=== PATIENT | female | born 1995 | race Caucasian/White ===

== ENCOUNTER 2016-12-19 12:38 | Emergency (ER) | payer MEDICAID ==
[2016-12-19] MEDS ORDERED: LORazepam 2 MG/ML INJ IVP ONE ×3 (13:16→15:28)
[2016-12-19] MEDS ORDERED: NS 1,000 ML IV ONE ×3 (13:16→15:28)
--- NOTE | 2016-12-19 13:34 | EDPHY ---
H & P Stated Complaint: nausea/vomiting/etoh last night/hypervenitilating - Personal History LMP (Females 10-55): IUD In Place Current Tetanus/Diphtheria Vaccine: Unsure - Medical/Surgical History Hx Asthma: No Hx Chronic Respiratory Disease: No Hx Diabetes: No Hx Cardiac Disease: No Hx Renal Disease: No Hx Cirrhosis: No Hx Alcoholism: No Hx HIV/AIDS: No Hx Splenectomy or Spleen Trauma: No Other PMH: anxiety - Social History Smoking Status: Current every day smoker Time Seen by Provider: 12/19/16 13:08 HPI/ROS: CHIEF COMPLAINT: Dyspnea, hyperventilation HISTORY OF PRESENT ILLNESS: 21-year-old female with history of anxiety, states that she woke this morning complaining of acute anxiety, hyperventilation, dyspnea. Positive alcohol use last evening however not excessive per patient's subjective report. No chest pain. No back pain. No syncope or near syncope. No palpitations. She did not take her Xanax today. PRIMARY CARE PROVIDER: [facility] REVIEW OF SYSTEMS: A ten point review of systems was performed and is negative with the exception of the items mentioned in the HPI PAST MEDICAL & SURGICAL HISTORY: no history of thromboembolic disorder SOCIAL HISTORY:positive cigarette smoker . No cocaine use in the past month. Student. PHYSICAL EXAM (Prior to examination, patient consented to physical exam, hands were washed and my usual and customary physical exam procedures followed) 1) GENERAL: Well-developed, well-nourished, alert and oriented. Appears t anxious, hyperventilating . 2) HEAD: Normocephalic, atraumatic 3) HEENT: Pupils equal, round, reactive to light bilaterally. Sclera anicteric. Nasopharynx, oropharynx, clear, no lesions. Ears bilaterally with normal tympanic membranes. 4) NECK: Full range of motion, no meningeal signs. 5) LUNGS: Clear auscultation bilaterally, no wheezes, no rhonchi, no retractions. No crepitus. Hyperventilating. 6) HEART: Regular rate and rhythm, no murmur, no heave, no gallop. 7) ABDOMEN: No guarding, no rebound, no focal tenderness, negative McBurney's, negative Dent's, negative Rovsing's, negative peritoneal sign, 8) MUSCULOSKELETAL: Moving all extremities, no focal areas of tenderness, no obvious trauma. No peripheral edema or discoloration. 9) BACK: No CVA tenderness, no midline vertebral tenderness, no fluctuance, no step-off, no obvious trauma, no visual or palpable abnormality. 10) SKIN: No rash, no petechiae. 11) Psychiatric: Patient is oriented X 3, there is no agitation. DIFFERENTIAL DIAGNOSIS: in no particular include but limited to pulmonary embolus, acute anxiety, acute alcohol withdrawal (Stan Hickman) Constitutional: Initial Vital Signs Temperature (C) 36.4 C 12/19/16 12:49 Heart Rate 80 12/19/16 12:49 Respiratory Rate 26 H 12/19/16 12:49 Blood Pressure 117/77 12/19/16 12:49 O2 Sat (%) 97 12/19/16 12:49 O2 Delivery Mode Room Air Allergies/Adverse Reactions: No Known Allergies Allergy (Unverified 12/19/16 12:49) Home Medications: Medication Instructions Recorded MIRENA 12/19/16 Xanax 12/19/16 Medical Decision Making - Diagnostics Imaging Results: Imaging Impressions Chest X-Ray 12/19/16 13:16 Impression: Suspect mild airways disease. ED Course/Re-evaluation: 2:56 p.m.: Patient's laboratory studies not resulted yet. Informed by the laboratory at this time that because of a name change incident the patient's laboratory studies have been delayed. 3:29 p.m.: Re-evaluation. He remains tachycardic in the mid 120s at this time after 2 L of fluid and 2 mg of IV Ativan. Specific etiology of this is not completely clear at this time. Will obtain EKG and administer further medication re-evaluated. (Stan Hickman) 3:45 p.m.-this patient was seen and examined by me. Cardiovascular: Regular tachycardia, chest is clear to auscultation. She states that she feels much better after IV Ativan and thinks that this was a panic attack. However she is still tachycardic, so we will continue to observe her and give her further IV fluids. A TSH was ordered. Leukocytosis and low bicarb likely secondary to dehydration to and vomiting. There is no evidence of serious infection at this point. She is feeling much better and would like to go home. Will give her another liter of normal saline and observe. Feels much better, wants to go home. (Ayana Jameson) - Data Points Laboratory Results: Laboratory Results 12/19/16 13:25 12/19/16 13:25 12/19/16 12/19/16 12/19/16 Unknown 13:25 13:25 WBC RBC Hgb Hct MCV MCH MCHC RDW Plt Count MPV Neut % (Auto) Lymph % (Auto) Levy % (Auto) Eos % (Auto) Baso % (Auto) Nucleat RBC Rel Count Absolute Neuts (auto) Absolute Lymphs (auto) Absolute Monos (auto) Absolute Eos (auto) Absolute Basos (auto) Absolute Nucleated RBC Immature Gran % Immature Gran # D-Dimer Sodium 139 mEq/L mEq/L (134-144) Potassium 4.4 mEq/L mEq/L (3.5-5.2) Chloride 106 mEq/L mEq/L (97-110) Carbon Dioxide 18 mEq/l L mEq/l (22-31) Anion Gap 15 mEq/L mEq/L (8-16) BUN 15 mg/dL mg/dL (7-23) Creatinine 0.8 mg/dL mg/dL (0.6-1.0) Estimated GFR > 60 Glucose 87 mg/dL mg/dL (70-100) Calcium 10.5 mg/dL H mg/dL (8.5-10.4) Total Bilirubin 1.0 mg/dL mg/dL (0.1-1.4) Conjugated Bilirubin 0.5 mg/dL mg/dL (0.0-0.5) Unconjugated Bilirubin 0.5 mg/dL mg/dL (0.0-1.1) AST 26 IU/L IU/L (14-46) ALT 33 IU/L IU/L (9-52) Alkaline Phosphatase 82 IU/L IU/L (38-126) Total Protein 8.5 g/dL H g/dL (6.3-8.2) Albumin 5.0 g/dL g/dL (3.5-5.0) Lipase 37.0 IU/L IU/L (23-300) TSH 2.960 uIU/mL uIU/mL (0.465-4.680) Beta HCG, Qual NEGATIVE 12/19/16 12/19/16 13:25 13:25 WBC 21.64 10^3/uL H 10^3/uL (3.80-9.50) RBC 5.04 10^6/uL 10^6/uL (4.18-5.33) Hgb 14.4 g/dL g/dL (12.6-16.3) Hct 43.2 % % (38.0-47.0) MCV 85.7 fL fL (81.5-99.8) MCH 28.6 pg pg (27.9-34.1) MCHC 33.3 g/dL g/dL (32.4-36.7) RDW 13.1 % % (11.5-15.2) Plt Count 240 10^3/uL 10^3/uL (150-400) MPV 11.3 fL fL (8.7-11.7) Neut % (Auto) 91.9 % H % (39.3-74.2) Lymph % (Auto) 5.3 % L % (15.0-45.0) Levy % (Auto) 2.1 % L % (4.5-13.0) Eos % (Auto) 0.0 % L % (0.6-7.6) Baso % (Auto) 0.2 % L % (0.3-1.7) Nucleat RBC Rel Count 0.0 % % (0.0-0.2) Absolute Neuts (auto) 19.90 10^3/uL H 10^3/uL (1.70-6.50) Absolute Lymphs (auto) 1.14 10^3/uL 10^3/uL (1.00-3.00) Absolute Monos (auto) 0.45 10^3/uL 10^3/uL (0.30-0.80) Absolute Eos (auto) 0.00 10^3/uL L 10^3/uL (0.03-0.40) Absolute Basos (auto) 0.04 10^3/uL 10^3/uL (0.02-0.10) Absolute Nucleated RBC 0.00 10^3/uL 10^3/uL (0-0.01) Immature Gran % 0.5 % % (0.0-1.1) Immature Gran # 0.11 10^3/uL H 10^3/uL (0.00-0.10) D-Dimer < 0.27 ug/mLFEU ug/mLFEU (0.00-0.50) Sodium Potassium Chloride Carbon Dioxide Anion Gap BUN Creatinine Estimated GFR Glucose Calcium Total Bilirubin Conjugated Bilirubin Unconjugated Bilirubin AST ALT Alkaline Phosphatase Total Protein Albumin Lipase TSH Beta HCG, Qual Medications Given: Discontinued Medications Sodium Chloride (Ns) 1,000 mls @ 0 mls/hr IV ONCE ONE PRN Reason: Wide Open Stop: 12/19/16 13:17 Last Admin: 12/19/16 13:22 Dose: 1,000 mls Sodium Chloride (Ns) 1,000 mls @ 0 mls/hr IV ONCE ONE PRN Reason: Wide Open Stop: 12/19/16 14:07 Last Admin: 12/19/16 14:13 Dose: 1,000 mls Sodium Chloride (Ns) 1,000 mls @ 0 mls/hr IV ONCE ONE PRN Reason: Wide Open Stop: 12/19/16 15:29 Last Admin: 12/19/16 15:44 Dose: 1,000 mls Lorazepam (Ativan Injection) 1 mg IVP EDNOW ONE Stop: 12/19/16 13:17 Last Admin: 12/19/16 13:31 Dose: 1 mg Lorazepam (Ativan Injection) 1 mg IVP EDNOW ONE Stop: 12/19/16 14:07 Last Admin: 12/19/16 14:13 Dose: 1 mg Lorazepam (Ativan Injection) 1 mg IVP EDNOW ONE Stop: 12/19/16 15:29 Last Admin: 12/19/16 15:43 Dose: 1 mg Departure - Departure Disposition: Home, Routine, Self-Care Clinical Impression: Anxiety Vomiting Qualifiers: Vomiting type: unspecified Vomiting Intractability: non-intractable Nausea presence: with nausea Qualified Code(s): R11.2 - Nausea with vomiting, unspecified Condition: Good Instructions: Anxiety (ED), Acute Nausea and Vomiting (ED) Additional Instructions: Call 911 if you develop chest pain, shortness of breath or any other symptoms that concern you. Follow-up with your physician tomorrow. Referrals: [facility],. [Clinic] - 1-2 days without fail Stand Alone Forms: Work Excuse
[2016-12-19 15:01] LABS: % IMMATURE GRANULYOCYTES 0.5 % (0.0-1.1); ABSOLUTE IMMATURE GRANULOCYTES 0.11 10^3/uL (0.00-0.10); ADD DIFF? NO; ADD MORPH? NO; ADD SCAN? NO; ATYPICAL LYMPHOCYTE FLAG 0 (0-99); FRAGMENT RBC FLAG 0 (0-99); HEMATOCRIT 43.2 % (38.0-47.0); HEMOGLOBIN 14.4 g/dL (12.6-16.3); LEFT SHIFT FLG 0 (0-99); LIPEMIA HEMOLYSIS FLAG 80 (0-99); MEAN CELL HEMOGLOBIN 28.6 pg (27.9-34.1); MEAN CELL HEMOGLOBIN CONCENTR. 33.3 g/dL (32.4-36.7); MEAN CELL VOLUME 85.7 fL (81.5-99.8); MEAN PLATELET VOLUME 11.3 fL (8.7-11.7); PLATELET CLUMPS FLAG 0 (0-99); PLATELET COUNT 240 10^3/uL (150-400); RED BLOOD CELL COUNT 5.04 10^6/uL (4.18-5.33); RED CELL DISTRIBUTION WIDTH 13.1 % (11.5-15.2)
[2016-12-19 15:11] LABS: ALANINE AMINOTRANSFERASE 33 IU/L (9-52); ALKALINE PHOSPHATASE 82 IU/L (38-126); ANION GAP 15 mEq/L (8-16); ASPARTATE AMINOTRANSFERASE 26 IU/L (14-46); BILIRUBIN-CONJUGATED 0.5 mg/dL (0.0-0.5); BILIRUBIN-UNCONJUGATED 0.5 mg/dL (0.0-1.1); CALCIUM 10.5 mg/dL (8.5-10.4); CARBON DIOXIDE 18 mEq/l (22-31); CHLORIDE 106 mEq/L (97-110); CREATININE 0.8 mg/dL (0.6-1.0); GLOMERULAR FILTRATION RATE > 60; GLUCOSE 87 mg/dL (70-100); POTASSIUM 4.4 mEq/L (3.5-5.2); SODIUM 139 mEq/L (134-144); TOTAL PROTEIN 8.5 g/dL (6.3-8.2)
--- NOTE | 2016-12-19 15:39 | CPEKG ---
Heart Rate: 116 RR Interval: 517 P-R Interval: 132 QRSD Interval: 68 QT Interval: 324 QTC Interval: 451 P [place]: 57 QRS [place]: 74 T Wave [place]: 52 EKG Severity - OTHERWISE NORMAL ECG - EKG Impression: SINUS TACHYCARDIA Electronically Signed By: Ayana Jameson 19-Dec-2016 21:16:35
[2016-12-19 15:47] VITALS: RESP 16; TEMP 98.1
[2016-12-19 17:03] VITALS: BP 95/52; PULSE 109; O2SAT 95
== END 2016-12-19 17:03 | disposition home or self-care (01) ==
DX: F41.9 Anxiety disorder, unspecified (principal); R11.2 Nausea with vomiting, unspecified; F17.210 Nicotine dependence, cigarettes, uncomplicated
CPT/HCPCS: 96374; J2060